=== PATIENT | female | born 1975 | race Caucasian/White ===

== ENCOUNTER → 2022-01-21 | Outpatient (CLI) | payer OTHER | LOC: M PLAIMG 08:12 | PROVIDERS: ATTEND Nurse Practitioner Family | DX: M25.522 Pain in left elbow (principal) ==

== ENCOUNTER → 2024-04-28 | Outpatient (REF) | payer OTHER ==
[2024-05-02 12:51] LABS: HPV APTIMA Not Detected (Not Detected)
== END ==
LOC: M LAB REF 13:23
PROVIDERS: ATTEND Registered Nurse
DX: Z01.419 Encounter for gynecological examination (general) (routine) without abnormal findings (principal)